=== PATIENT | female | born 1985 | race Caucasian/White ===

== ENCOUNTER 2016-12-14 23:08 | Emergency (ER) | payer OTHER ==
[~2016-12-14] VITALS: Ht 165.1 cm; Wt 157.4 kg
[~2016-12-14 23:08] MED LIST: ATIVAN1 MG PO; MOTRIN; MOTRIN800 MG PO; NATURAL IRON65 MG PO; PEPTO BISMUL; PRENATAL VITAMI1 T10 PO; PRENATAL1 TA1 PO; ZOFRAN4 M3 PO; tylenol
[2016-12-14 23:10] VITALS: BP 127/61
--- NOTE | 2016-12-15 00:40 | NUR ---
TO ER BED 8
--- NOTE | 2016-12-15 00:42 | NUR ---
PT PRESENTS TO ER WITH C/O CHEST PAIN SINCE JULY AND REPORTS THAT IT HAS BEEN WORSENING EVERY MONTH. DENIES MED HX
[2016-12-15] MEDS ORDERED: KETOROLAC 60 MG/2 ML VIAL IM ONE (01:25)
[2016-12-15 02:13] VITALS: BP 118/67
--- NOTE | 2016-12-15 02:13 | NUR ---
Patient discharged with v/s stable. Written and verbal after care instructions given and explained. Patient alert, oriented and verbalized understanding of instructions. Ambulatory with steady gait. All questions addressed prior to discharge. ID band removed. Patient advised to follow up with PMD. Rx of MOTRIN, PRILOSEC given. Patient educated on indication of medication including possible reaction and side effects. Opportunity to ask questions provided and answered.
[2017-01-22] MEDS ORDERED: ZOFRAN ODT4 MG PO (09:53)
[2017-01-22] MEDS ORDERED: ACETAMINOPHEN-H1 TA3 PO (09:53)
[2017-01-22] MEDS ORDERED: FLAGYL500 M1 PO (09:53)
[2017-01-22] MEDS ORDERED: COLACE100 MG PO (09:53)
== END 2016-12-15 02:13 | disposition home or self-care (01) ==
LOC: MED 23:08
DX: R07.89 Other chest pain (principal); R11.2 Nausea with vomiting, unspecified; R05 Cough
CPT/HCPCS: 93005; 96372; 99283; J1885

== ENCOUNTER 2017-01-17 05:40 | Emergency (ER) | payer OTHER ==
[~2017-01-17] VITALS: Ht 165.1 cm; Wt 156.2 kg
[~2017-01-17 05:40] MED LIST changes: -ATIVAN1 MG PO; +IRON65TA11 PO; -MOTRIN; -MOTRIN800 MG PO; -NATURAL IRON65 MG PO; -PEPTO BISMUL; +PREN-385 PO; -PRENATAL VITAMI1 T10 PO; -PRENATAL1 TA1 PO; -ZOFRAN4 M3 PO; -tylenol
--- NOTE | 2017-01-17 05:40 | NUR ---
PATIENT AMBULATED TO ER BED 4.
[2017-01-17 05:45] VITALS: BP 116/75
--- NOTE | 2017-01-17 05:50 | NUR ---
Patient being evaluated by physician at bedside.
--- NOTE | 2017-01-17 05:55 | NUR ---
31Y F PRESENTED TO ER C/O OF ABDOMINAL PAIN X3 DAYS WITH NAUSEA BUT NO VOMITTING. PAIN 9/10 IN SCALE.
[2017-01-17] MEDS ORDERED: NACL 0.9% 500 ML IV ONE (06:00)
[2017-01-17] MEDS ORDERED: ONDANSETRON 4 MG/2 ML VIAL IVP ONE (06:00)
[2017-01-17] MEDS ORDERED: KETOROLAC 30 MG/ML VIAL IVP ONE (06:00)
--- NOTE | 2017-01-17 07:00 | NUR ---
RT AC IV SITE WITH SWELLING AND INFILTRATED. NO C/O OF PAIN. IVF STOPPED AND IV REMOVED. PT TOLERATED PROCEDURE WELL. STARTED NEW IV G#22 TO LT HAND.
[2017-01-17 07:40] LABS: ANION GAP 9.5 (8-16); CALCIUM 8.3 mg/dL (8.5-10.1); CARBON DIOXIDE 27.4 mmol/L (21-32); CREATININE 0.8 mg/dL (0.6-1.3); POTASSIUM 3.9 mmol/L (3.5-5.1)
[2017-01-17 07:43] LABS: BASOPHILS # (AUTO) 0.4 K/uL (0.00-0.22); BASOPHILS % (AUTO) 4.3 % (0.0-2.0); EOSINOPHILS # (AUTO) 0.1 K/uL (0-0.4); EOSINOPHILS % (AUTO) 0.9 % (0.0-4.0); HEMATOCRIT 37.2 % (36-48); HEMOGLOBIN 12.1 g/dL (12.0-16.0); LYMPHOCYTES # (AUTO) 1.5 K/uL (2.5-16.5); MEAN CORPUSCULAR HEMOGLOBIN 26 pg (27-31); MEAN CORPUSCULAR HGB CONC 32 g/dL (33-37); MEAN CORPUSCULAR VOLUME 81 fL (80-94); MONOCYTES # (AUTO) 0.5 K/uL (0.8-1.0); MONOCYTES % (AUTO) 5.1 % (1.7-9.3); NEUTROPHILS # (AUTO) 7.2 K/uL (1.8-7.7); NEUTROPHILS % (AUTO) 74.7 % (42.2-75.2); PLATELET COUNT (AUTO) 261 K/uL (140-450); RED BLOOD CELL COUNT(AUTO) 4.62 MIL/uL (4.20-5.40); RED CELL DISTRIBUTION WIDTH 14.4 % (11.6-13.7); WHITE BLOOD COUNT (AUTO) 9.7 K/uL (4.8-10.8)
[2017-01-17 07:46] LABS: ALBUMIN 3.3 g/dL (3.4-5.0); TOTAL BILIRUBIN 0.2 mg/dL (0.0-1.0)
--- NOTE | 2017-01-17 08:12 | NUR ---
Vale carter in [facility] - 01/17/17 at 0823 by MEDRICK IV removed, catheter intact and site benign. Applied folded 4x4 gauze and tape to stop bleeding. PT TOLERATED PROCEDURE WELL.
--- NOTE | 2017-01-17 08:12 | NUR ---
IV removed, catheter intact and site benign. Applied folded 4x4 gauze and tape to stop bleeding. PT TOLERATED PROCEDURE WELL. SWELLING/REDNESS TO RT AC FROM INFILTRATED IV DECREASED; PT DENIES PAIN TO SITE AT THIS TIME.
[2017-01-17 08:15] VITALS: BP 112/72
--- NOTE | 2017-01-17 08:15 | NUR ---
Patient discharged with v/s stable. Written and verbal after care instructions given and explained. Patient alert, oriented and verbalized understanding of instructions. Ambulatory with to car. All questions addressed prior to discharge. ID band removed. Patient advised to follow up with PMD. Rx of ZOFRAN ODT 4MG & TYLENOL W/ CODEINE NO. 3 TAB given. Patient educated on indication of medication including possible reaction and side effects. Opportunity to ask questions provided and answered.
== END 2017-01-17 08:15 | disposition home or self-care (01) ==
LOC: MED 05:40
DX: K80.00 Calculus of gallbladder with acute cholecystitis without obstruction (principal); E66.01 Morbid (severe) obesity due to excess calories; R03.0 Elevated blood-pressure reading, without diagnosis of hypertension
CPT/HCPCS: 36415; 76705; 80053; 81025; 83690; 85025; 96361; 96374; 96375; 99285; J1885; J2405; Q0092

== ENCOUNTER 2017-01-18 15:49 | Inpatient (IN) | payer OTHER ==
[~2017-01-18] VITALS: Ht 165.1 cm; Wt 156.5 kg
[2017-01-18 16:15] VITALS: BP 131/80
[2017-01-18] MEDS ORDERED: NACL 0.9% 1,000 ML IV SCH (18:15)
[2017-01-18] MEDS ORDERED: FAMOTIDINE 20 MG/2 ML VIAL IVP ONE (18:15)
[2017-01-18] MEDS ORDERED: ONDANSETRON 4 MG/2 ML VIAL IVP ONE (18:15)
--- NOTE | 2017-01-18 18:24 | NUR ---
PT TAKEN TO BED 6
--- NOTE | 2017-01-18 18:24 | NUR ---
Vale carter in [facility] - 01/18/17 at 1826 by [facility] PT AMBULATED TO BED 3.
--- NOTE | 2017-01-18 18:25 | NUR ---
31/F PT C/O RUQ PAIN. PT STATES SHE WAS SEEN IN ER LAST NOC AND DX W/GALLSTONES AND PRESCRIBED TYLENOL #3, BUT THE MEDICATION ISN'T HELPING AND SHE'S STILL IN ALOT OF PAIN.PATIENT STATED HAS N/V BUT DENIES DIARRHEA; SKIN IS PINK/WARM/DRY; AAOX4 WITH EVEN AND STEADY GAIT; LUNGS CLEAR BL; HR EVEN AND REGULAR; PT DENIES ANY FEVER, CP, SOB, OR COUGH AT THIS TIME; PATIENT STATES PAIN OF 10/10 AT THIS TIME; VSS; PATIENT POSITIONED FOR COMFORT; HOB ELEVATED; BEDRAILS UP X2; BED DOWN. ER MD MADE AWARE OF PT STATUS.
[2017-01-18 18:52] LABS: APPEARANCE,URINE HAZY (CLEAR); BILIRUBIN,URINE NEGATIVE (NEGATIVE); BLOOD, URINE 2+ (NEGATIVE); COLOR,URINE YELLOW (YELLOW); LEUKOCYTE ESTERASE ,URINE NEGATIVE (NEGATIVE); NITRITE, URINE NEGATIVE (NEGATIVE); PROTEIN,URINE NEGATIVE (NEGATIVE); UGLUCOSE NEGATIVE (NEGATIVE)
--- NOTE | 2017-01-18 18:53 | NUR ---
Dr. Herring evaluating patient at bedside.
[2017-01-18 19:03] LABS: ANION GAP 10.7 (8-16); CALCIUM 8.4 mg/dL (8.5-10.1); CARBON DIOXIDE 29.1 mmol/L (21-32); POTASSIUM 3.8 mmol/L (3.5-5.1)
[2017-01-18 19:04] LABS: ALBUMIN 3.4 g/dL (3.4-5.0); CREATININE 0.7 mg/dL (0.6-1.3); TOTAL BILIRUBIN 0.4 mg/dL (0.0-1.0); TOTAL PROTEIN, SERUM 7.7 g/dL (6.4-8.2)
[2017-01-18] MEDS ORDERED: MORPHINE SULFATE 4 MG/ML SYR IVP ONE (19:05)
[2017-01-18 19:08] LABS: BACTERIA,URINE FEW /HPF (None Seen); RBC,URINE 11-20 (MOD) /HPF (0-5); SQUAMOUS EPITHELIAL CELL,UR 20-50 /LPF (0-3 (FEW)); WBC,URINE 0-5 (RARE) /HPF (0-5)
[2017-01-18 19:09] LABS: BASOPHILS # (AUTO) 0.1 K/uL (0.00-0.22); BASOPHILS % (AUTO) 0.5 % (0.0-2.0); EOSINOPHILS # (AUTO) 0.1 K/uL (0-0.4); EOSINOPHILS % (AUTO) 0.8 % (0.0-4.0); HEMATOCRIT 38.7 % (36-48); HEMOGLOBIN 12.6 g/dL (12.0-16.0); LYMPHOCYTES % (AUTO) 7.2 % (20.5-51.1); MEAN CORPUSCULAR HEMOGLOBIN 26 pg (27-31); MEAN CORPUSCULAR HGB CONC 33 g/dL (33-37); MEAN CORPUSCULAR VOLUME 80 fL (80-94); MONOCYTES # (AUTO) 0.7 K/uL (0.8-1.0); MONOCYTES % (AUTO) 5.5 % (1.7-9.3); NEUTROPHILS # (AUTO) 11.7 K/uL (1.8-7.7); PLATELET COUNT (AUTO) 284 K/uL (140-450); RED BLOOD CELL COUNT(AUTO) 4.82 MIL/uL (4.20-5.40); RED CELL DISTRIBUTION WIDTH 14.4 % (11.6-13.7); WHITE BLOOD COUNT (AUTO) 13.6 K/uL (4.8-10.8)
--- NOTE | 2017-01-18 19:10 | NUR ---
Dr. Ortiz at bedside to evaluate patient.
--- NOTE | 2017-01-18 19:16 | NUR ---
Pt report given to MILO RUSSELL. Transfer of care at this time.
[2017-01-18] MEDS ORDERED: PIPERACILLIN/TAZOBACTAM 3.375 GM in DEXTROSE 5% 50 ML IV ONE (19:20)
[2017-01-18] MEDS ORDERED: NACL 0.9% 1,000 ML IV ONE (19:20)
[2017-01-18] MEDS ORDERED: PIPERACILLIN/TAZOBACTAM 3.375 GM VIAL IV ONE (19:49)
--- NOTE | 2017-01-18 20:15 | NUR ---
Patient will be admitted to care of DR VENEGAS. Admited to MED SURG. Will go to room 120 A. Belongings list completed. Report to MILO REYES.
--- NOTE | 2017-01-18 20:33 | NUR ---
PT TRASFERRED BY EMT TO MED SURG BERNADINE SZYMANSKIS.
[2017-01-18 20:35] VITALS: BP 105/67
--- NOTE | 2017-01-18 20:35 | NUR ---
Admitted from ER TO MED SURGICAL UNIT VIA W/C , with chief complaint of RUE ABDOMINAL PAIN, WITH NAUSEA VOMITING , 31 y/o ,Female, OBESE, Cooperative, AWAKE, A/OX4. RESPIRATION EVEN AND UNLABORED. IV SALINE LOCK AT THE RIGHT AC, G20, PATENT AND INTACT. ABDOMEN SOFT, WITH POSITIVE BOWEL SOUNDS ON ALL QUADRANTS. SKIN INTACT, DENIES PAIN AT THIS TIME 0/10.FAMILY AT THE BEDSIDE. oriented to call light, bed, phone,television, bathroom, smoking policy visiting hours, procedures, ID bracelet on. Belongings list checked.
--- NOTE | 2017-01-18 22:00 | NUR ---
Patient's Plan of Care was discussed and reviewed with SQL REPORT DEVELOPER: AMY ROSAS
[2017-01-19] VITALS: BP 100/68
[2017-01-19] MEDS ORDERED: metroNIDAZOLE 500 MG/NS PREMIX 100 ML IV SCH (00:20)
[2017-01-19] MEDS: DEXT 5% /NACL 0.9% 1,000 ML IV SCH ×3 (00:50→23:19)
[2017-01-19] MEDS: LEVOFLOXACIN 500 MG/D5W PREMIX 100 ML IV SCH (01:04)
[2017-01-19] MEDS: MORPHINE SULFATE 2 MG/ML SYR IVP PRN ×5 (01:05→23:19)
[2017-01-19] MEDS ORDERED: ONDANSETRON 4 MG/2 ML VIAL IVP PRN (03:40)
[2017-01-19] MEDS: metroNIDAZOLE 500 MG/NS PREMIX 100 ML IV SCH ×3 (03:56→22:08)
[2017-01-19 05:53] LABS: HEMATOCRIT 33.9 % (36-48); HEMOGLOBIN 11.5 g/dL (12.0-16.0); MEAN CORPUSCULAR HEMOGLOBIN 27 pg (27-31); MEAN CORPUSCULAR HGB CONC 34 g/dL (33-37); MEAN CORPUSCULAR VOLUME 79 fL (80-94); PLATELET COUNT (AUTO) 244 K/uL (140-450); RED BLOOD CELL COUNT(AUTO) 4.28 MIL/uL (4.20-5.40); RED CELL DISTRIBUTION WIDTH 14.1 % (11.6-13.7); WHITE BLOOD COUNT (AUTO) 12.1 K/uL (4.8-10.8)
[2017-01-19 06:00] VITALS: BP 111/70
[2017-01-19 06:41] LABS: ALBUMIN 2.9 g/dL (3.4-5.0); CALCIUM 7.8 mg/dL (8.5-10.1); CARBON DIOXIDE 28.2 mmol/L (21-32); CREATININE 0.6 mg/dL (0.6-1.3); POTASSIUM 4.2 mmol/L (3.5-5.1); TOTAL BILIRUBIN 0.6 mg/dL (0.0-1.0); TOTAL PROTEIN, SERUM 6.8 g/dL (6.4-8.2)
--- NOTE | 2017-01-19 07:00 | NUR ---
WITH ON AND OFF ABDOMINAL PAIN, MEDICATED ORDERED. CONDITION REMAIN STABLE. WILL ENDORSE TO AM NURSE FOR CONTINUITY OF CARE.
--- NOTE | 2017-01-19 07:20 | NUR ---
ENDORSED TO KAY/RJ RNs FOR CONTINUITY OF CARE.
--- NOTE | 2017-01-19 07:21 | NUR ---
RECEIVED REPORT FROM DRY CLEANING CHECKER NURSE AT BEDSIDE FOR CONTINUITY OF CARE. PT IS ALERT AWAKE AND ORIENTED. INTRODUCED OURSELVES AND UPDATED THE BOARD. PT DENIES PAIN AT THIS TIME. VS WNL. PT HAS R AC 20G RUNNING D5NS @75ML/HR. EXPLAINED PT PLAN OF CARE AND WILL UPDATE PT ONCE WE KNOW THE TIME FOR SURGERY. CALL LIGHT WITHIN REACH. WILL CONTINUE TO MONITOR.
[2017-01-19 07:38] LABS: BAND % (MANUAL) 1 % (0-8); LYMPHOCYTES % (MANUAL) 10 % (20-46); MONOCYTES % (MANUAL) 4 % (5-12); NEUTROPHILS % (MANUAL) 84 (43-65)
--- NOTE | 2017-01-19 09:21 | NUR ---
PATIENT HAS BEEN SCREENED AND CATEGORIZED HIGH NUTRITION RISK. PATIENT WILL BE SEEN WITHIN 1-2 DAYS OF ADMISSION. 01/19/17-01/20/[address]
--- NOTE | 2017-01-19 10:28 | NUR ---
PT SLEEPING SOUNDLY. NO SIGNS OF DISTRESS. IV PUMP BEEPING. WILL PUT ON STANDBY. WILL CONTINUE TO MONITOR PT.
--- NOTE | 2017-01-19 12:55 | NUR ---
PT C/O OF PAIN. ADMINISTERED PAIN MEDS. FATHER AT BEDSIDE. WILL CONTINUE TO MONITOR PT.
--- NOTE | 2017-01-19 14:11 | NUR ---
PT RESTING COMFORTABLY. FATHER AT BEDSIDE. NO COMPLAINTS AT THIS TIME. WILL CONTINUE TO MONITOR PT.
--- NOTE | 2017-01-19 14:51 | NUR ---
CM NOTE INITIAL REVIEW SENT TO [facility] FAX# [phone] PH# SARA [phone]
[2017-01-19 16:00] VITALS: BP 119/76
--- NOTE | 2017-01-19 16:30 | NUR ---
VS WNL. PT IS TALKING WITH FRIENDS WHO ARE AT BEDSIDE. DENIES PAIN AT THIS TIME. WILL CONTINUE TO MONITOR.
--- NOTE | 2017-01-19 17:59 | NUR ---
PT RESTING IN BED. HAS SOME PAIN, VERY LITTLE. REFUSES PAIN MEDS AT THIS TIME. WILL EAT HER DINNER TRAY. NO OTHER COMPLAINTS. WILL CONTINUE TO MONITOR.
--- NOTE | 2017-01-19 18:15 | NUR ---
PT STATED SHE DEVELOPED 8/10 PAIN AFTER EATING THE SOUP. ADMINISTERED MORPHINE. PT TOLERATED WELL. WILL CONTINUE TO MONITOR.
--- NOTE | 2017-01-19 19:11 | NUR ---
ENDORSED PT TO BUILDING INSPECTOR NURSE AT BEDSIDE. PT IN STABLE CONDITION.
--- NOTE | 2017-01-19 19:12 | NUR ---
RECD. RESTING IN BED, AWAKE, A/OX4. RESPIRATION EVEN AND UNLABORED. IV OF NS AT 75 ML/HR INFUSING LEFT FOREARM G22. AWARE OF PLAN SURGERY TOMORROW. PLAN OF CARE FOR THE SHIFT DISCUSSED. VERBALIZED UNDERSTANDING. DENIES PAIN 0/10. PARENTS AT THE BEDSIDE.
--- NOTE | 2017-01-19 23:00 | NUR ---
NPO PAST MIDNIGHT. VERBALIZED UNDERSTANDING.
[2017-01-19 23:09] VITALS: BP 116/61
[2017-01-20] VITALS (7 sets, daily range): BP systolic 107–127; BP diastolic 66–87
--- NOTE | 2017-01-20 | NUR ---
SLEEPING COMFORTABLY IN BED.
[2017-01-20] MEDS: LEVOFLOXACIN 500 MG/D5W PREMIX 100 ML IV SCH (00:10)
--- NOTE | 2017-01-20 01:16 | NUR ---
Patient's Plan of Care was discussed and reviewed with SADE: AMY.
[2017-01-20] MEDS: DEXT 5% /NACL 0.9% 1,000 ML IV SCH (02:40)
[2017-01-20] MEDS: metroNIDAZOLE 500 MG/NS PREMIX 100 ML IV SCH ×3 (04:47→22:22)
[2017-01-20] MEDS: MORPHINE SULFATE 2 MG/ML SYR IVP PRN (04:48)
--- NOTE | 2017-01-20 06:00 | NUR ---
AMBULATED TO BR TO VOID, WENT BACK TO SLEEP AFTER VOIDING.
--- NOTE | 2017-01-20 06:45 | NUR ---
COMPLAINT OF ABDOMINAL PAIN ATTENDED PROMPTLY, MEDICATED ORDERED. CONDITION REMAIN STABLE. WILL ENDORSE TO AM NURSE FOR CONTINUITY OF CARE.
[2017-01-20 06:56] LABS: BASOPHILS # (AUTO) 0.1 K/uL (0.00-0.22); BASOPHILS % (AUTO) 0.6 % (0.0-2.0); EOSINOPHILS # (AUTO) 0.1 K/uL (0-0.4); EOSINOPHILS % (AUTO) 1.2 % (0.0-4.0); HEMATOCRIT 35.7 % (36-48); HEMOGLOBIN 11.4 g/dL (12.0-16.0); LYMPHOCYTES # (AUTO) 1.3 K/uL (2.5-16.5); LYMPHOCYTES % (AUTO) 12.8 % (20.5-51.1); MEAN CORPUSCULAR HEMOGLOBIN 26 pg (27-31); MEAN CORPUSCULAR HGB CONC 32 g/dL (33-37); MEAN CORPUSCULAR VOLUME 81 fL (80-94); MONOCYTES # (AUTO) 0.9 K/uL (0.8-1.0); MONOCYTES % (AUTO) 9.1 % (1.7-9.3); NEUTROPHILS # (AUTO) 7.5 K/uL (1.8-7.7); NEUTROPHILS % (AUTO) 76.3 % (42.2-75.2); PLATELET COUNT (AUTO) 258 K/uL (140-450); RED BLOOD CELL COUNT(AUTO) 4.41 MIL/uL (4.20-5.40); RED CELL DISTRIBUTION WIDTH 14.3 % (11.6-13.7); WHITE BLOOD COUNT (AUTO) 9.9 K/uL (4.8-10.8)
--- NOTE | 2017-01-20 07:20 | NUR ---
ENDORSED TO Melania ADAME FOR CONTINUITY OF CARE.
--- NOTE | 2017-01-20 07:21 | NUR ---
RECEIVED REPORT FROM PARTS RUNNER NURSE AT BEDSIDE. PT IS ALERT AWAKE AND ORIENTED. REINTRODUCED OURSELVES AND UPDATED THE BOARD. EXPLAINED TO PT PLAN OF DAY AND WILL UPDATE PT ON SURGERY TIME. PT VS WNL. PT DENIES PAIN AT THIS TIME. PT HAS IV ON L HAND 22 G RUNNING 75ML/HR OF D5NS. NO DISTRESS NOTED. CALL LIGHT WITHIN REACH. WILL CONTINUE TO MONITOR.
[2017-01-20 07:31] LABS: ALBUMIN 2.8 g/dL (3.4-5.0); ANION GAP 10.5 (8-16); CALCIUM 7.9 mg/dL (8.5-10.1); CARBON DIOXIDE 27.1 mmol/L (21-32); CREATININE 0.6 mg/dL (0.6-1.3); POTASSIUM 3.6 mmol/L (3.5-5.1); TOTAL BILIRUBIN 0.5 mg/dL (0.0-1.0); TOTAL PROTEIN, SERUM 6.8 g/dL (6.4-8.2)
--- NOTE | 2017-01-20 09:25 | NUR ---
DR. JESSICA CALLED AND STATED THAT HE IS COMING TO PERFORM SURGERY AT 10. THE SURGERY IS LAPAROSCOPIC CHOLECYSTECTOMY, POSSIBLE OPEN CHOLECYSTECTOMY, AND INDICATED PROCEDURE. WILL HAVE CONSENT AND PROGRESS NOTE READY.
[2017-01-20] MEDS ORDERED: LIDOCAINE 1% 50 ML ONE (09:36)
[2017-01-20] MEDS: BUPIVACAINE-MPF 0.25% 30 ML VIAL INJ ONE ×2 (09:37→13:07)
--- NOTE | 2017-01-20 10:00 | NUR ---
OR NURSES CAME TO AUTOMATIC LATHE OPERATOR PT FOR SURGERY. ALL JEWELRY REMOVED. IV DISCONNECTED. CONSENT SIGNED IN CHART. TICKET TO RIDE IN CHART. PT IN STABLE CONDITION. PT TRANSFERRED IN [facility].
[2017-01-20] MEDS ORDERED: DEXAMETHASONE 4 MG/ML VIAL ONE (10:10)
[2017-01-20] MEDS ORDERED: ROCURONIUM 50 MG/5 ML VIAL IV ONE (10:10)
[2017-01-20] MEDS ORDERED: SUCCINYLCHOLINE CHLORIDE 200 MG/10 ML VIAL IVP ONE (10:10)
[2017-01-20] MEDS ORDERED: PROPOFOL 200 MG/20 ML VIAL IV ONE (10:10)
[2017-01-20] MEDS ORDERED: GLYCOPYRROLATE 0.2 MG/ML VIAL ONE (10:10)
[2017-01-20] MEDS ORDERED: ONDANSETRON 4 MG/2 ML VIAL ONE (10:10)
[2017-01-20] MEDS ORDERED: DESFLURANE 240 ML BTL INH ONE (10:10)
[2017-01-20] MEDS ORDERED: KETOROLAC 60 MG/2 ML VIAL IM ONE (10:10)
[2017-01-20] MEDS ORDERED: PHENYLEPHRINE 10 MG/ML VIAL ONE (10:10)
[2017-01-20] MEDS ORDERED: MIDAZOLAM 2 MG/2 ML VIAL ONE (10:35)
[2017-01-20] MEDS ORDERED: MEPERIDINE 50 MG/ML SYR ONE (10:35)
[2017-01-20] MEDS ORDERED: fentaNYL 0.05 MG/ML VIAL ONE ×2 (10:35→13:04)
[2017-01-20] MEDS ORDERED: ceFAZolin 1,000 MG VIAL ONE (11:33)
[2017-01-20] MEDS ORDERED: MIDAZOLAM 2 MG/2 ML VIAL IVP ONE (12:45)
[2017-01-20] MEDS ORDERED: MEPERIDINE 25 MG/ML SYR IVP PRN ×2 (12:45)
[2017-01-20] MEDS ORDERED: METOCLOPRAMIDE 10 MG/2 ML INJ VIAL IVP PRN (12:45)
--- NOTE | 2017-01-20 13:05 | NUR ---
01/20/17 RD INITIAL ASSESSMENT COMPLETED PLEASE REFER TO NUTRITION ASSESSMENT UNDER CARE ACTIVITY FOR ESTIMATED NUTRITIONAL NEEDS. 1. WHEN MEDICALLY FEASIBLE, INITIATE ORAL DIET TO START ON CLEAR LIQUID DIET AND ADVANCE TOLERATED TO REGULAR DIET 2. RD TO FOLLOW-UP 2-3 DAYS; HIGH RISK WERNER ASENCIO, JULIANNE
[2017-01-20] MEDS ORDERED: BACITRACIN 50000 UNITS/1 VIAL ONE (13:40)
--- NOTE | 2017-01-20 14:39 | NUR ---
CM NOTE CONCURRENT REVIEW SENT TO [facility] FAX# [phone] PH# SARA [phone]
--- NOTE | 2017-01-20 14:50 | NUR ---
CALLED OR FOR AN UPDATE ON PT STATUS. OR NURSE STATED SURGEON JUST FINISHED SURGERY. REASSURED PT'S FAMILY.
[2017-01-20] MEDS: DEXT 5% / NACL 0.45% 1,000 ML IV SCH ×2 (15:07→23:07)
[2017-01-20] MEDS ORDERED: HYDROmorphone 1 MG/ML AMP IVP PRN (15:10)
[2017-01-20] MEDS ORDERED: ONDANSETRON 4 MG/2 ML VIAL IVP PRN (15:10)
--- NOTE | 2017-01-20 16:10 | NUR ---
PT CAME BACK TO UNIT WITH OR NURSE. PT IS DROWSY BUT WAKES UP TO VOICE. PT HAD OPEN DEVONTE SURGERY. EBL 250 ML, URINE OUTPUT 300 ML, LEN DRAIN ALREADY EMPTIED 35 ML. PT HAS 2 BANDAIDS AND 2 4X4 GAUZE, 2 ABDOMINAL BINDERS. WILL CHANGE DRESSING IF SOILED, RIGHT NOW NOT SOILED. PT RECEIVED FLAGYL, LEVAQUIN AND ANCEF IN OR. PT WILL BE CLEAR LIQUID TONIGHT AND PROGRESS ON DIET TOMORROW. VS WNL EXCEPT FOR O2 SAT OF 90-92%, PUT ON NC 3L, O2 SAT 97%. WILL CONTINUE TO MONITOR CLOSELY. UPDATED THE PARENTS AND .
[2017-01-20] MEDS: PIPER/TAZO 3.375GM/D5W PREMIX 50 ML IV SCH (17:30)
--- NOTE | 2017-01-20 17:38 | NUR ---
PT STILL SLEEPING. SPOUSE AT BEDSIDE. PARENTS LEFT. NO SIGNS OF DISTRESS. WILL CONTINUE TO MONITOR PT.
--- NOTE | 2017-01-20 19:13 | NUR ---
ENDORSED CARE OF PT TO CLINICAL INFORMATICS SPEC NURSE AT BEDSIDE. PT IS IN STABLE CONDITION.
--- NOTE | 2017-01-20 19:14 | NUR ---
RECD. RESTING IN BED, AWAKE, A/OX4. RESPIRATION EVEN AND UNLABORED. IV OF D51/2 NS AT 125 ML/HR INFUSING. INCISION (3) IN THE ABDOMEN COVERED WITH DRESSING, WITH SMALL AMOUNT OF BLOOD SEEPING THROUGH DRESSING, 1 LEN DRAINING SANGUINEOUS FLUID, MINIMAL AMOUNT. NO ACTIVE BLEEDING NOTED. WITH TWO ABDOMINAL BINDER TO KEEP DRESSING IN PLACE. ON BILATERAL LEG SEQUENTIALS. PLAN OF CARE FOR THE SHIFT DISCUSSED. VERBALIZED UNDERSTANDING. DENIES PAIN 0/10.
--- NOTE | 2017-01-20 20:00 | NUR ---
Patient's Plan of Care was discussed and reviewed with BROOMCORN PRESS FEEDER: AMY ROSAS.
[2017-01-20] MEDS: KETOROLAC 30 MG/ML VIAL IVP SCH (22:22)
--- NOTE | 2017-01-20 22:26 | NUR ---
PT TOLERATED 2100 MEDS WELL.
[2017-01-21] VITALS: BP 103/61
--- NOTE | 2017-01-21 | NUR ---
SLEEPING COMFORTABLY IN BED.
[2017-01-21] MEDS: PIPER/TAZO 3.375GM/D5W PREMIX 50 ML IV SCH ×5 (00:13→23:32)
[2017-01-21] MEDS: LEVOFLOXACIN 500 MG/D5W PREMIX 100 ML IV SCH ×2 (00:48→23:31)
[2017-01-21 03:28] VITALS: BP 112/53
[2017-01-21] MEDS: MORPHINE SULFATE 2 MG/ML SYR IVP PRN ×4 (03:30→23:46)
--- NOTE | 2017-01-21 04:00 | NUR ---
DISCONTINUED DENNISON CATHETER. HAD 500 ML TEA COLORED URINE. ENCOURAGED TO DRINK MORE FLUIDS.
[2017-01-21] MEDS: metroNIDAZOLE 500 MG/NS PREMIX 100 ML IV SCH ×3 (04:23→20:24)
[2017-01-21] MEDS: KETOROLAC 30 MG/ML VIAL IVP SCH ×2 (04:23→13:53)
[2017-01-21] MEDS: DEXT 5% / NACL 0.45% 1,000 ML IV SCH ×4 (04:28→23:07)
--- NOTE | 2017-01-21 06:00 | NUR ---
TOLERATED CLEAR LIQUIDS, NO N/V NOTED. ENCOURAGED TO AMBULATE MORE.
--- NOTE | 2017-01-21 06:50 | NUR ---
AWAKE IN BED, INSTRUCTED TO CALL NURSE BEFORE GETTING OUT OF BED FOR ASSISTANCE. VERBALIZED UNDERSTANDING. CONDITION REMAIN STABLE. WILL ENDORSE TO AM NURSE FOR CONTINUITY OF CARE.
--- NOTE | 2017-01-21 07:15 | NUR ---
ENDORSED TO MILO GALAVIZ FOR CONTINUITY OF CARE.
--- NOTE | 2017-01-21 07:15 | NUR ---
RECEIVED REPORT FROM NIGHT NURSE. PT IS AAOX4, ON ROOM AIR, IV TO RIGHT WRIST 20G INFUSING WELL, LEFT WRIST 22G SALINE LOCK PATENT AND INTACT. S/P OPEN DEVONTE WITH ABD DRESSINGS DRY AND INTACT, BINDER IN PLACE. LEN DRAIN IN PLACE. INITIAL ASSESSMENT COMPLETED. REVIEWED PLAN OF CARE WITH PT, PT VERBALIZED UNDERSTANDING, ALL SAFETY PRECAUTIONS MET, CALL LIGHT WITHIN REACH. WILL CONTINUE TO MONITOR.
[2017-01-21 08:00] VITALS: BP 110/60
--- NOTE | 2017-01-21 09:01 | NUR ---
CM NOTE CONCURRENT REVIEW SENT TO [facility] FAX# [phone] PH# SARA [phone]
[2017-01-21 09:17] LABS: BASOPHILS # (AUTO) 0.5 K/uL (0.00-0.22); BASOPHILS % (AUTO) 3.8 % (0.0-2.0); EOSINOPHILS # (AUTO) 0.1 K/uL (0-0.4); HEMATOCRIT 31.4 % (36-48); HEMOGLOBIN 9.8 g/dL (12.0-16.0); LYMPHOCYTES # (AUTO) 1.3 K/uL (2.5-16.5); LYMPHOCYTES % (AUTO) 10.6 % (20.5-51.1); MEAN CORPUSCULAR HEMOGLOBIN 25 pg (27-31); MEAN CORPUSCULAR HGB CONC 31 g/dL (33-37); MEAN CORPUSCULAR VOLUME 80 fL (80-94); MONOCYTES # (AUTO) 0.7 K/uL (0.8-1.0); MONOCYTES % (AUTO) 5.5 % (1.7-9.3); NEUTROPHILS % (AUTO) 79.1 % (42.2-75.2); PLATELET COUNT (AUTO) 306 K/uL (140-450); RED BLOOD CELL COUNT(AUTO) 3.91 MIL/uL (4.20-5.40); WHITE BLOOD COUNT (AUTO) 12.6 K/uL (4.8-10.8)
[2017-01-21 09:25] LABS: ANION GAP 9.1 (8-16); CALCIUM 7.7 mg/dL (8.5-10.1); CARBON DIOXIDE 28.8 mmol/L (21-32); CREATININE 0.7 mg/dL (0.6-1.3); POTASSIUM 3.9 mmol/L (3.5-5.1)
--- NOTE | 2017-01-21 12:39 | NUR ---
DUE MEDICATIONS GIVEN, PT C/O ABD PAIN MEDICATED PER MD ORDERS. ASSISTED PT TO RESTROOM.
--- NOTE | 2017-01-21 13:00 | NUR ---
MILO GALAVIZ INSTRUCTED PT ON IS AND NOC RT WILL FOLLOW UP WITH PT
--- NOTE | 2017-01-21 13:06 | NUR ---
PT URINATED, PT WALKED AROUND UNIT ONCE, PT TOLERATED WELL, PT BACK TO ROOM CURRENTLY SITTING ON CHAIR AT BEDSIDE, PROVIDED IS AND EDUCATION, PT VERBALIZED UNDERSTANDING.
--- NOTE | 2017-01-21 13:55 | NUR ---
DUE MEDICATIONS GIVEN, PT TOLERATED WELL. PT TOLERATED CLEAR LIQUIDS. ALL NEEDS MET. PT CURRENTLY SITTING AT BEDSIDE. CALL LIGHT WITHIN REACH. WILL CONTINUE TO MONITOR.
[2017-01-21 16:00] VITALS: BP 119/60
--- NOTE | 2017-01-21 16:05 | NUR ---
PT CURRENTLY VISITING WITH FAMILY MEMBERS. ALL NEEDS MET. CALL LIGHT WITHIN REACH. WILL CONTINUE TO MONITOR.
--- NOTE | 2017-01-21 18:18 | NUR ---
DUE MEDICATIONS GIVEN, PT CURRENTLY RESTING IN BED, MEDICATED PT FOR PAIN, LEN DRAIN 20MLS. ALL NEEDS MET. CALL LIGHT WITHIN REACH. WILL CONTINUE TO MONITOR.
--- NOTE | 2017-01-21 19:30 | NUR ---
ENDORSED PLAN OF CARE TO NIGHT NURSE , PT ON STABLE CONDITION.
--- NOTE | 2017-01-21 19:40 | NUR ---
RECEIVED PT IN STABLE CONDITION FROM AM NURSE. AWAKE,ALERT AND ORIENTED X4. MED SURG PT. FAMILY MEMBERS AT BEDSIDE. WITH NO ACUTE DISTRESS NOTED. NO C/O ANY PAIN AT THIS TIME. IVF INFUSING WELL ON THE RT WRIST .CLEAR AND PATENT. S/P OPEN DEVONTE. WITH RT LOWER ABDOMINAL DRESSING X2 WITH J MORAN . HAS X1 BAND AID ON LOWER UMBILICAL AREA. ABDOMINAL BINDER IN PLACED. ENCOURAGED TO AMBULATE AND TURN TO SIDES WHILE IN BED. BLE WITH SCD MACHINE. PLAN OF CARE DISCUSSED AND VERBALIZED UNDERSTANDING . CALL LIGHT PLACED WITHIN EASY REACH. WILL CONTINUE TO MONITOR.
--- NOTE | 2017-01-21 21:30 | NUR ---
SLEEPING ATT HIS TIME. NO S/S OF ANY DISCOMFORT NOR PAIN NOTED. WILL CONTINUE TO MONITOR.
--- NOTE | 2017-01-21 23:00 | NUR ---
MADE ROUNDS, PT SLEEPING WELL. NO S/S FO ANY DISCOMFORT NOR PAIN . WILL CONTINUE TO MONITOR.
[2017-01-21 23:40] VITALS: BP 115/65
--- NOTE | 2017-01-22 00:22 | NUR ---
PT C/O NUMBNESS ON BOTH LOWER LEGS, MOSTLY LT LEG. PAGED. DR. DAMON. DR. DARREL Rendon LICENSED MENTAL HEALTH COUNSELOR .CALLED BACK ,MADE AWARE .NO ORDER MADE .SHE SAID TO HAVE PRIMARY MD KNOW IN AM.
--- NOTE | 2017-01-22 02:00 | NUR ---
STILL AWAKE. BUT NO C/O ANY DISCOMFORT NOR PAIN NOTED. WILL CONTINUE TO MONITOR.
--- NOTE | 2017-01-22 05:00 | NUR ---
ASSISTED X2 TO THE BATHROOM. C/O POST OP PAIN. WILL MEDICATE ORDERED.
[2017-01-22 05:18] VITALS: BP 134/71
[2017-01-22] MEDS: metroNIDAZOLE 500 MG/NS PREMIX 100 ML IV SCH ×3 (05:19→20:30)
[2017-01-22] MEDS: MORPHINE SULFATE 2 MG/ML SYR IVP PRN (05:20)
[2017-01-22] MEDS: PIPER/TAZO 3.375GM/D5W PREMIX 50 ML IV SCH ×3 (06:18→18:06)
[2017-01-22 06:39] LABS: BASOPHILS % (AUTO) 0.3 % (0.0-2.0); EOSINOPHILS # (AUTO) 0.1 K/uL (0-0.4); EOSINOPHILS % (AUTO) 0.9 % (0.0-4.0); HEMATOCRIT 29.1 % (36-48); HEMOGLOBIN 9.3 g/dL (12.0-16.0); LYMPHOCYTES # (AUTO) 1.3 K/uL (2.5-16.5); LYMPHOCYTES % (AUTO) 13.4 % (20.5-51.1); MEAN CORPUSCULAR HEMOGLOBIN 26 pg (27-31); MEAN CORPUSCULAR HGB CONC 32 g/dL (33-37); MEAN CORPUSCULAR VOLUME 82 fL (80-94); MONOCYTES # (AUTO) 0.8 K/uL (0.8-1.0); MONOCYTES % (AUTO) 8.3 % (1.7-9.3); NEUTROPHILS # (AUTO) 7.3 K/uL (1.8-7.7); NEUTROPHILS % (AUTO) 77.1 % (42.2-75.2); PLATELET COUNT (AUTO) 324 K/uL (140-450); RED BLOOD CELL COUNT(AUTO) 3.55 MIL/uL (4.20-5.40); WHITE BLOOD COUNT (AUTO) 9.5 K/uL (4.8-10.8)
[2017-01-22 07:18] LABS: ALBUMIN 2.2 g/dL (3.4-5.0); CALCIUM 7.5 mg/dL (8.5-10.1); CARBON DIOXIDE 27.5 mmol/L (21-32); CREATININE 0.6 mg/dL (0.6-1.3); POTASSIUM 3.5 mmol/L (3.5-5.1); TOTAL BILIRUBIN 0.2 mg/dL (0.0-1.0); TOTAL PROTEIN, SERUM 5.8 g/dL (6.4-8.2)
--- NOTE | 2017-01-22 07:20 | NUR ---
ENDORSED PT IN STABLE CONDITION TO AM NURSE.
--- NOTE | 2017-01-22 07:21 | NUR ---
RECEIVED REPORT FROM SUPERVISOR GLUING NURSE AT BEDSIDE. PT IS ALERT AWAKE AND ORIENTED. REINTRODUCED OURSELVES AND UPDATED THE BOARD. EXPLAINED TO PT PLAN OF CARE. PT DENIES PAIN. NO OTHER COMPLAINTS AT THIS TIME. PT HAS IV ON R WRIST 20G SALINE LOCKED AND L HAND 22 G SALINE LOCKED, WILL RESTART IVF D51/2NS AT 125ML/HR ORDERED. PT HAS 2 ABD BINDERS, DUE FOR DSG CHANGE TODAY. PT HAS LEN DRAIN WITH MINIMAL DRAINAGE. CALL LIGHT WITHIN REACH. WILL CONTINUE TO MONITOR.
[2017-01-22 08:00] VITALS: BP 122/65
--- NOTE | 2017-01-22 09:00 | NUR ---
RESTARTED PT ON IVF D51/2NS @ 125 ML/HR. PT DENIES PAIN. NO COMPLAINTS AT THIS TIME. PT CAME TO ASSESS PT'S GAIT WHEN WALKING. PT TOLERATED WELL. WILL CONTINUE TO MONITOR.
[2017-01-22] MEDS ORDERED: DOCU-264 PO (09:53)
[2017-01-22] MEDS ORDERED: ONDA4ODT1 PO (09:53)
[2017-01-22] MEDS ORDERED: METR500T1 PO (09:53)
[2017-01-22] MEDS ORDERED: ACET-9525 PO (09:53)
--- NOTE | 2017-01-22 10:30 | NUR ---
PT RESTING COMFORTABLY IN BED. PT STATED SHE AMBULATED TO THE RESTROOM EARLIER THIS MORNING. NO SIGNS OF DISTRESS. NO COMPLAINTS AT THIS TIME. WILL CONTINUE TO MONITOR PT.
--- NOTE | 2017-01-22 11:41 | NUR ---
CM NOTE CONCURRENT REVIEW SENT TO [facility] FAX# [phone] PH# SARA [phone]
[2017-01-22] MEDS: DEXT 5% / NACL 0.45% 1,000 ML IV SCH ×3 (12:00→23:07)
--- NOTE | 2017-01-22 12:00 | NUR ---
PT SITTING IN CHAIR, WAITING FOR LUNCH. DENIES PAIN. NO SIGNS OF DISTRESS. WILL CONTINUE TO MONITOR PT.
[2017-01-22] MEDS: HYDROcodone/APAP 5/325 MG 1 TAB TAB PO PRN ×2 (12:39→18:12)
--- NOTE | 2017-01-22 13:00 | NUR ---
REINSERTED AN IV IN THE R WRIST. PT TOLERATED WELL. PT IS FINISHING UP HER ZOSYN AND WILL START FLAGYL. PT TOLERATING WELL. WILL CONTINUE TO MONITOR PT.
--- NOTE | 2017-01-22 14:00 | NUR ---
PAGERosey AND SPOKE TO DR. JESSICA RE PT'S D/C. PER MD, PT WILL BE DISCHARGED TOMORROW. KEVIN WILL BE REMOVED AT BEDSIDE TOMORROW. PT IS AMBULATING, PASSING GAS, AND TOLERATING DIET WELL. WILL NOTIFY PT.
--- NOTE | 2017-01-22 15:26 | NUR ---
PT SLEEPING SOUNDLY. NO SIGNS OF DISTRESS. WILL CONTINUE TO MONITOR PT.
[2017-01-22 16:00] VITALS: BP 120/78
--- NOTE | 2017-01-22 17:50 | NUR ---
PT EATING SUBWAY SANDWICH THAT PARENT BROUGHT IN. PT TOLERATING WELL. MOM AND DAD AT BEDSIDE.
--- NOTE | 2017-01-22 18:12 | NUR ---
ADMINISTERED NORCO FOR PAIN 04/23, PT TOLERATED WELL. EMPTIED LEN DRAIN 15 ML OF SEROSANGUINOUS DRAINAGE. PT TOLERATED WELL.
--- NOTE | 2017-01-22 19:20 | NUR ---
ENDORSED PT TO STACKER AND SORTER OPERATOR NURSE AT BEDSIDE. PT IN STABLE CONDITION.
--- NOTE | 2017-01-22 19:28 | NUR ---
RECEIVED PT IN STABLE CONDITION FROM AM NURSE. ASLEEP BUR EASILY AROUSE WHEN NAME CALLED. MED SURG PT. NO C/O ANY PAIN AT THIS TIME. WITH IVF INFUSING WELL ON THE RT FA#[phone]. WITH ABDOMINAL DRESSING ,CLEAN AND DRY. J MORAN DRAIN PRESENT. BOTH LEGS WITH SCD MACHINE. CALL LIGHT PLACED WITHIN EASY REACH. WILL CONTINUE TO MONITOR.
--- NOTE | 2017-01-22 20:30 | NUR ---
AMBULATED TO THE HALLWAY. TOLERATED WELL. NO C/O ANY DISCOMFORT NOR PAIN NOTED.
--- NOTE | 2017-01-22 21:30 | NUR ---
SLEEPING AT THIS TIME. NO S/S OF ANY DISCOMFORT NOTED.
--- NOTE | 2017-01-22 23:50 | NUR ---
ENDORSED PT IN STABLE CONDITION TO MILO AARON FOR CONTINUITY OF CARE.
--- NOTE | 2017-01-22 23:52 | NUR ---
RECEIVED FROM ANOTHER RN FOR CONTINUITY OF CARE. SLEEPING. NO SOB. NO RESTLESSNESS. CALL LIGHT WITH IN REACH.
[2017-01-23] MEDS: LEVOFLOXACIN 500 MG/D5W PREMIX 100 ML IV SCH (00:02)
[2017-01-23] MEDS: HYDROcodone/APAP 5/325 MG 1 TAB TAB PO PRN ×2 (00:14→14:43)
[2017-01-23] MEDS: PIPER/TAZO 3.375GM/D5W PREMIX 50 ML IV SCH ×3 (00:44→11:51)
[2017-01-23 00:45] VITALS: BP 115/60
--- NOTE | 2017-01-23 00:47 | NUR ---
SLEEPING AT THIS TIME. ABLE TO VERBALIZE NEEDS WELL. CALL LIGHT WITH IN REACH.
[2017-01-23] MEDS: metroNIDAZOLE 500 MG/NS PREMIX 100 ML IV SCH ×2 (05:01→13:00)
--- NOTE | 2017-01-23 06:39 | NUR ---
SLEPT WELL THIS SHIFT. USES CALL LIGHT FOR HELP. LEN TAKEN OUT IS 5ML SEROUS SANGUINOUS. A/O X 4. ROM X 4. NO BLEEDING TO SURGICAL SITE. ABDOMINAL BINDER IN PLACE.
--- NOTE | 2017-01-23 07:15 | NUR ---
RECEIVED REPORT FROM THE FREE LANCE ARTIST NURSE, AGNIESZKA AT BEDSIDE FOR CONTINUITY OF CARE. PT IS SLEEPING. I WILL BE BY LATER WHEN SHE IS AWAKE TO ASSESS PT. PT IS IN STABLE CONDITION.
--- NOTE | 2017-01-23 07:45 | NUR ---
PT IS AWAKE AND ORIENTED. I RE-INTRODUCED MYSELF AND UPDATED THE BOARD. PT DENIES ANY PAIN AT THIS TIME. V/S WITHIN NORMAL RANGE. PT'S IV STILL INTACT ON R WRIST 22G, INFUSING NS AT 125ML/HR. PT'S ABDOMINAL BINDER STILL ON. WENT OVER TODAY'S PLAN: DR. JESSICA TO COME BY AND REMOVE KEVIN AND SUTURES. PT TO BE D/C TODAY. SHE IS AMBULATING TO AND FROM THE BATHROOM. PT IS PASSING GAS BUT NO BM OF YET. BREAKFAST IS HERE. WILL CONTINUE TO MONITOR PT.
[2017-01-23 08:00] VITALS: BP 100/57
[2017-01-23] MEDS: MORPHINE SULFATE 2 MG/ML SYR IVP PRN (08:30)
--- NOTE | 2017-01-23 08:36 | NUR ---
PT C/O OF PAIN AND NAUSEA. ADMINISTERED PAIN AND NAUSEA MEDS. PT TOLERATED WELL. WILL CONTINUE TO MONITOR PT.
--- NOTE | 2017-01-23 10:20 | NUR ---
P/T HERE FOR THERAPY. PT AMBULATING IN THE HALLS. PT TOLERATING WELL.
--- NOTE | 2017-01-23 10:43 | NUR ---
PT WANTED HER BREAKFAST HEATED UP. SHE DIDN'T EAT IT EARLIER D/T NAUSEA. SHE IS FEELING BETTER AFTER ZOFRAN. WILL CONTINUE TO MONITOR PT.
--- NOTE | 2017-01-23 12:00 | NUR ---
PT IV HAS INFILTRATED. REFUSED A NEW IV. WILL HOLD OTHER IV MEDS. NO SIGNS OF DISTRESS. WAITING ON DR. JESSICA TO ARRIVE TO REMOVE KEVIN. MOM BROUGHT OUTSIDE FOOD FOR PT. REFUSED HOSPITAL LUNCH TRAY. WILL CONTINUE TO MONITOR PT.
--- NOTE | 2017-01-23 13:28 | NUR ---
PT VISITING WITH FAMILY. STILL WAITING FOR DR. JESSICA TO ARRIVE. PT REQUESTED HER BEDDING BE CHANGED. CHANGED ALL THE LINENS. NO COMPLAINTS AT THIS TIME. WILL CONTINUE TO MONITOR PT.
--- NOTE | 2017-01-23 13:35 | NUR ---
01/23/17 RD FOLLOW-UP ASSESSMENT COMPLETED PLEASE REFER TO NUTRITION ASSESSMENT UNDER CARE ACTIVITY FOR ESTIMATED NUTRITIONAL NEEDS. 1. CONTINUE BLAND/SOFT DIET 2. RD TO FOLLOW-UP 2-3 DAYS; HIGH RISK WERNER ASENCIO RD
--- NOTE | 2017-01-23 13:50 | NUR ---
CM NOTE CONCURRENT REVIEW SENT TO [facility] FAX# [phone] PH# SARA [phone]
--- NOTE | 2017-01-23 14:45 | NUR ---
KARIS, CHARGE NURSE GOT ORDER FROM DR. JESSICA TO REMOVE THE LEN DRAIN. PT WILL BE D/C'D AND HE WOULD LIKE TO SEE HER IN HIS OFFICE ON THURSDAY. WILL START ON D/C PROCESS.
--- NOTE | 2017-01-23 15:20 | NUR ---
DISCHARGE INSTRUCTIONS GIVEN. ANSWERED ALL QUESTIONS. PT VERBALIZED UNDERSTANDING. PT SIGNED APPROPRIATE DOCUMENTS. TOOK PICTURES OF SURGICAL WOUNDS. LEFT WOUNDS TETE PER MD. WILL FOLLOW UP W/ DR. JESSICA THURSDAY. REMOVED IV, CANNULA INTACT. NO BLEEDING NOTED. REMOVED ALL ID BANDS. WILL GET DRESSED AND LET ME KNOW WHEN SHE IS READY TO LEAVE. WILL GATHER HER PERSONAL BELONGINGS. WILL HAVE WHEELCHAIR READY.
--- NOTE | 2017-01-23 15:35 | NUR ---
WHEELED PT OUT IN WHEEL CHAIR, ACCOMPANIED BY SPOUSE AND FAMILY. PERSONAL BELONGINGS ALL WITH FAMILY. PT IN STABLE CONDITION.
== END 2017-01-23 15:35 | disposition home or self-care (01) | DRG 260 ==
LOC: MED 15:49 → MTU 20:08
PROVIDERS: ADMIT Internal Medicine; ATTEND Internal Medicine
PROC: 0FB20ZZ Excision of Left Lobe Liver, Open Approach (ICD-10-PCS; 2017-01-20)
PROC: 0WJG4ZZ Inspection of Peritoneal Cavity, Percutaneous Endoscopic Approach (ICD-10-PCS; 2017-01-20)
PROC: 0FN44ZZ Release Gallbladder, Percutaneous Endoscopic Approach (ICD-10-PCS; 2017-01-20)
PROC: 0F944ZX Drainage of Gallbladder, Percutaneous Endoscopic Approach, Diagnostic (ICD-10-PCS; 2017-01-20)
PROC: 0FT40ZZ Resection of Gallbladder, Open Approach (ICD-10-PCS; principal; 2017-01-20 10:00)
PROC: 0FJ44ZZ Inspection of Gallbladder, Percutaneous Endoscopic Approach (ICD-10-PCS; 2017-01-20 10:00)
DX: K80.13 Calculus of gallbladder with acute and chronic cholecystitis with obstruction (principal); K82.1 Hydrops of gallbladder; E46 Unspecified protein-calorie malnutrition; Z68.43 Body mass index [BMI] 50.0-59.9, adult; E66.01 Morbid (severe) obesity due to excess calories; Z56.0 Unemployment, unspecified; Z53.31 Laparoscopic surgical procedure converted to open procedure
CPT/HCPCS: 36415; 80048; 80053; 81001; 82150; 82374; 83690; 85025; 87070; 87075; 87081; 87205; 96365; 96375; 97110; 97116; 97530; 99285; J0330; J0690; J1100; J1885; J1956; J2001; J2175; J2250; J2270; J2370; J2405; J2543; J2704; J3010; J3490; J7030; J7042; J7060

== ENCOUNTER 2017-01-23 21:20 | Emergency (ER) | payer OTHER ==
[~2017-01-23] VITALS: Ht 165.1 cm; Wt 157.4 kg
[~2017-01-23 21:20] MED LIST changes: +ACET-9525 PO; +DOCU-264 PO; +METR500T1 PO; +ONDA4ODT1 PO
[2017-01-23 21:41] VITALS: BP 101/68
[2017-01-23] MEDS ORDERED: GABAPENTIN 300 MG CAP PO ONE (23:10)
[2017-01-23] MEDS ORDERED: IBUPROFEN 600 MG TAB PO ONE (23:10)
--- NOTE | 2017-01-23 23:10 | NUR ---
31/F BIB FAMILY C/O BILATERAL LEG BURNING SENSATION x 2 DAYS. PAIN 10/10 BURNING SENSATION NON RADIATING. PT STATES SHE WAS INPATIENT FOR GB SURGERY AT [facility] SINCE THURSDAY. DENIES ANY SOB, NO S/S OF DISTRESS NOTED. ER MD EVALUATING PT.
[2017-01-23] MEDS ORDERED: GABAPENTIN 300 MG CAP ONE (23:35)
[2017-01-23 23:48] VITALS: BP 105/72
--- NOTE | 2017-01-23 23:48 | NUR ---
Patient discharged with v/s stable. Written and verbal after care instructions given and explained. Patient alert, oriented and verbalized understanding of instructions. Ambulatory with steady gait. All questions addressed prior to discharge. ID band removed. Patient advised to follow up TO THIS ER IN 2 DAYS. Rx of NEURONTIN, AND MOTRIN given. Patient educated on indication of medication including possible reaction and side effects. Opportunity to ask questions provided and answered.
== END 2017-01-23 23:48 | disposition home or self-care (01) ==
LOC: MED 21:20
DX: R20.9 Unspecified disturbances of skin sensation (principal); M79.652 Pain in left thigh; M79.651 Pain in right thigh; Z90.49 Acquired absence of other specified parts of digestive tract
CPT/HCPCS: 99283

== ENCOUNTER 2017-01-28 00:24 | Emergency (ER) | payer OTHER ==
[~2017-01-28] VITALS: Ht 165.1 cm; Wt 153.3 kg
[~2017-01-28 00:24] MED LIST changes: -ACET-9525 PO; +ACETAMINOPHEN-H1 TA3 PO; +ATIVAN1 MG PO; +COLACE100 MG PO; -DOCU-264 PO; +FLAGYL500 M1 PO; -IRON65TA11 PO; -METR500T1 PO; +MOTRIN; +MOTRIN800 MG PO; +NATURAL IRON65 MG PO; -ONDA4ODT1 PO; +PEPTO BISMUL; -PREN-385 PO; +PRENATAL VITAMI1 T10 PO; +PRENATAL1 TA1 PO; +ZOFRAN ODT4 MG PO; +ZOFRAN4 M3 PO; +tylenol
[2017-01-28 00:27] VITALS: BP 108/78
--- NOTE | 2017-01-28 01:23 | NUR ---
TO ER BED 5
--- NOTE | 2017-01-28 01:24 | NUR ---
PT BIB FAMILY C/O POST OP PAIN, WITH D/C STARTED AN HOUR AGO , POST CHOLECYSTECTOMY LAST THURSDAY. ER MD DR MUNIZ AT BEDSIDE, WOUND NOT BLEEDING. PAIN 4/10. Pupils equal and reactive to light bilaterally. No facial droop noted. No smile deficit noted. Speech normal for patient. Patient is alert and oriented to person, place, time and event. Bilateral hand gun profiler equal. Bilateral foot push equal. ALL ORDR EXECUTED. NO N/V/D, PERRLA, GAIT-WNL.
--- NOTE | 2017-01-28 01:46 | NUR ---
Patient appears to be resting comfortably in bed. Vital Signs within normal limits. Respirations even and unlabored.
--- NOTE | 2017-01-28 01:49 | NUR ---
Patient noted to have existing wounds upon arrival to ER. Wound covered with dressing. Physician informed.
[2017-01-28 01:52] VITALS: BP 108/78
== END 2017-01-28 01:48 | disposition home or self-care (01) ==
LOC: MED 00:24
DX: Z48.01 Encounter for change or removal of surgical wound dressing (principal)

== ENCOUNTER 2017-04-04 04:56 | Emergency (ER) | payer OTHER ==
[~2017-04-04] VITALS: Ht 165.1 cm; Wt 153.3 kg
[~2017-04-04 04:56] MED LIST changes: +ACET-9525 PO; -ACETAMINOPHEN-H1 TA3 PO; -ATIVAN1 MG PO; -COLACE100 MG PO; +DOCU-264 PO; -FLAGYL500 M1 PO; +IRON65TA11 PO; +METR500T1 PO; -MOTRIN; -MOTRIN800 MG PO; -NATURAL IRON65 MG PO; +ONDA4ODT1 PO; -PEPTO BISMUL; +PREN-385 PO; -PRENATAL VITAMI1 T10 PO; -PRENATAL1 TA1 PO; -ZOFRAN ODT4 MG PO; -ZOFRAN4 M3 PO; -tylenol
[2017-04-04 05:09] VITALS: BP 121/63
--- NOTE | 2017-04-04 05:14 | NUR ---
Vale carter in [facility] - 04/04/17 at 0516 by [facility] TO ER BED 8
--- NOTE | 2017-04-04 05:16 | NUR ---
AMBULATED TO ER BED 8
--- NOTE | 2017-04-04 05:26 | NUR ---
PATIENT PRESENTS TO ED WITH C/O VAG BLEED. STATES WENT TO URGENT CARE ON THU AND WAS TOLD HAD UTI. PT DENIES N/V/D; SKIN IS PINK/WARM/DRY; AAOX4 WITH EVEN AND STEADY GAIT; LUNGS CLEAR BL; HR EVEN AND REGULAR; PT DENIES ANY FEVER, CP, SOB, OR COUGH AT THIS TIME; PATIENT STATES PAIN OF 6/10 AT THIS TIME; VSS; PATIENT POSITIONED FOR COMFORT; HOB ELEVATED; BEDRAILS UP X2; BED DOWN. ER MD MADE AWARE OF PT STATUS.
--- NOTE | 2017-04-04 05:44 | NUR ---
FEMALE CHAPERONED FOR DR. PIERRE DURING PELVIC EXAM
[2017-04-04] MEDS ORDERED: PHENAZOPYRIDINE 100 MG TAB PO ONE (05:50)
[2017-04-04 05:55] LABS: BILIRUBIN,URINE NEGATIVE (NEGATIVE); BLOOD, URINE 3+ (NEGATIVE); COLOR,URINE RED (YELLOW); LEUKOCYTE ESTERASE ,URINE 2+ (NEGATIVE); NITRITE, URINE POSITIVE (NEGATIVE); PROTEIN,URINE 2+ (NEGATIVE); UGLUCOSE NEGATIVE (NEGATIVE)
[2017-04-04 06:19] LABS: APPEARANCE,URINE BLOODY (CLEAR)
[2017-04-04 06:21] LABS: RBC,URINE >20 (MANY) /HPF (0-5)
[2017-04-04 06:22] LABS: WBC,URINE 16-25 (MOD) /HPF (0-5)
[2017-04-04 06:23] LABS: BACTERIA,URINE 1+ /HPF (None Seen); SQUAMOUS EPITHELIAL CELL,UR 0-3 (FEW) /LPF (0-3 (FEW))
[2017-04-04 06:50] VITALS: BP 118/68
--- NOTE | 2017-04-04 06:50 | NUR ---
Patient discharged with v/s stable. Written and verbal after care instructions given and explained. Patient alert, oriented and verbalized understanding of instructions. Ambulatory with steady gait. All questions addressed prior to discharge. ID band removed. Patient advised to follow up with PMD. Rx of Pyridium and Cipro given. Patient educated on indication of medication including possible reaction and side effects. Opportunity to ask questions provided and answered.
== END 2017-04-04 06:50 | disposition home or self-care (01) ==
LOC: MED 04:56
DX: N39.0 Urinary tract infection, site not specified (principal); Z79.899 Other long term (current) drug therapy; Z90.49 Acquired absence of other specified parts of digestive tract
CPT/HCPCS: 81001; 81025; 87086; 87186; 99284

== ENCOUNTER 2017-12-06 09:08 | Emergency (ER) | payer OTHER ==
[~2017-12-06] VITALS: Ht 165.1 cm; Wt 137.9 kg
[~2017-12-06 09:08] MED LIST changes: -DOCU-264 PO; +DOCU-300 PO; +FERR-252 PO; -IRON65TA11 PO
--- NOTE | 2017-12-06 09:18 | NUR ---
attempted to call patient; pt in restroom in lobby; will follow up
[2017-12-06 09:31] VITALS: BP 111/68
--- NOTE | 2017-12-06 09:49 | NUR ---
PATIENT IS A 32 YO FEMALE BIB SELF FOR LEFT ANKLE PAIN AND ITCHING FROM INSECT BITE LAST NIGHT.
--- NOTE | 2017-12-06 09:54 | NUR ---
Dr. Archuleta evaluating patient.
[2017-12-06 10:00] VITALS: BP 111/68
--- NOTE | 2017-12-06 10:02 | NUR ---
Patient discharged with v/s stable. Written and verbal after care instructions given and explained. Patient verbalized understanding. Ambulatory with steady gait. All questions addressed prior to discharge. Advised to follow up with PMD.
== END 2017-12-06 10:02 | disposition home or self-care (01) ==
LOC: MED 09:08
DX: S90.562A Insect bite (nonvenomous), left ankle, initial encounter (principal); Z79.899 Other long term (current) drug therapy; W57.XXXA Bitten or stung by nonvenomous insect and other nonvenomous arthropods, initial encounter; Y93.89 Activity, other specified; Y92.830 Public park as the place of occurrence of the external cause; Y99.8 Other external cause status
CPT/HCPCS: 99281

== ENCOUNTER 2018-05-01 21:30 | Emergency (ER) | payer OTHER ==
[~2018-05-01] VITALS: Ht 165.1 cm; Wt 113.4 kg
[2018-05-01 21:37] VITALS: BP 100/64
--- NOTE | 2018-05-01 21:40 | NUR ---
EKG PERFORMED IN TRIAGE ROOM WITH BLINDS DRAWN AND TRIAGE NURSE PRESENT
--- NOTE | 2018-05-01 21:42 | NUR ---
TO LOBBY A/W BED, AMBULATORY, VSS, EKG DONE -NSR, ERMD NOTED
--- NOTE | 2018-05-01 22:23 | NUR ---
PT AMB TO ED BED 2
--- NOTE | 2018-05-01 23:05 | NUR ---
PATIENT PRESENTS TO ED WITH CHEST PAIN FOR 3 DAYS WHILE LYING ON BED. MED HX: ANXIETY PT DENIES N/V/D; SKIN IS PINK/WARM/DRY; AAOX4. LUNGS CLEAR BL; HR EVEN AND REGULAR; PATIENT STATES PAIN OF 8/10 AT THIS TIME; PATIENT POSITIONED FOR COMFORT; HOB ELEVATED; BEDRAILS UP X2; BED DOWN. ER MD MADE AWARE OF PT STATUS.
[2018-05-01] MEDS ORDERED: PANTOPRAZOLE 40 MG TABEC PO ONE (23:10)
[2018-05-01] MEDS ORDERED: ALUMINUM HYD/MAG/SIMETHICONE 30 ML, DICYCLOMINE HCL LIQUID 20 MG, LIDOCAINE VISCOUS 2% ... PO ONE ×3 (23:10)
[2018-05-01 23:44] LABS: BASOPHILS # (AUTO) 0.1 K/uL (0.00-0.22); BASOPHILS % (AUTO) 0.6 % (0.0-2.0); EOSINOPHILS # (AUTO) 0.1 K/uL (0-0.4); EOSINOPHILS % (AUTO) 1.3 % (0.0-4.0); HEMATOCRIT 36.3 % (36-48); HEMOGLOBIN 11.8 g/dL (12.0-16.0); LYMPHOCYTES # (AUTO) 2.5 K/uL (2.5-16.5); LYMPHOCYTES % (AUTO) 27.7 % (20.5-51.1); MEAN CORPUSCULAR HEMOGLOBIN 27 pg (27-31); MEAN CORPUSCULAR HGB CONC 32 g/dL (33-37); MEAN CORPUSCULAR VOLUME 83.8 fL (80-94); MONOCYTES # (AUTO) 0.7 K/uL (0.8-1.0); MONOCYTES % (AUTO) 7.8 % (1.7-9.3); NEUTROPHILS # (AUTO) 5.7 K/uL (1.8-7.7); NEUTROPHILS % (AUTO) 62.6 % (42.2-75.2); PLATELET COUNT (AUTO) 228 K/uL (140-450); RED BLOOD CELL COUNT(AUTO) 4.34 MIL/uL (4.20-5.40); RED CELL DISTRIBUTION WIDTH 15.4 % (11.6-13.7); WHITE BLOOD COUNT (AUTO) 9.1 K/uL (4.8-10.8)
[2018-05-02 00:01] LABS: CARBON DIOXIDE 28.9 mmol/L (21-32); CREATININE 0.6 mg/dL (0.6-1.3); POTASSIUM 3.9 mmol/L (3.5-5.1)
--- NOTE | 2018-05-02 00:02 | NUR ---
TO SENT TO XRAY VIA W/C WITH TECH VIA W/C
[2018-05-02 00:06] LABS: ALBUMIN 3.4 g/dL (3.4-5.0); TOTAL BILIRUBIN 0.3 mg/dL (0.0-1.0)
[2018-05-02 02:25] VITALS: BP 105/62
--- NOTE | 2018-05-02 02:25 | NUR ---
Patient discharged with v/s stable. Written and verbal after care instructions given and explained. Patient alert, oriented and verbalized understanding of instructions. Ambulatory with steady gait. All questions addressed prior to discharge. ID band removed. Patient advised to follow up with PMD. Rx of REGLAN 5MG, OMEPRAZOLE 40MG AND NORCO 5MG-325MG given. Patient educated on indication of medication including possible reaction and side effects. Opportunity to ask questions provided and answered.
== END 2018-05-02 02:25 | disposition home or self-care (01) ==
LOC: MED 21:30
DX: K29.70 Gastritis, unspecified, without bleeding (principal); Z79.899 Other long term (current) drug therapy; Z98.84 Bariatric surgery status
CPT/HCPCS: 36415; 74021; 80053; 81002; 81025; 83690; 85025; 93005; 99285

== ENCOUNTER 2018-10-03 15:09 | Emergency (ER) | payer OTHER ==
[~2018-10-03] VITALS: Ht 160 cm; Wt 97.5 kg
[~2018-10-03 15:09] MED LIST changes: +ONDA-24 PO; -ONDA4ODT1 PO
[2018-10-03 15:32] VITALS: BP 114/71
[2018-10-03 16:22] LABS: BASOPHILS % (AUTO) 0.3 % (0.0-2.0); EOSINOPHILS # (AUTO) 0.1 K/uL (0-0.4); EOSINOPHILS % (AUTO) 0.9 % (0.0-4.0); HEMATOCRIT 38.4 % (36-48); HEMOGLOBIN 12.4 g/dL (12.0-16.0); LYMPHOCYTES # (AUTO) 1.7 K/uL (2.5-16.5); LYMPHOCYTES % (AUTO) 21.7 % (20.5-51.1); MEAN CORPUSCULAR HEMOGLOBIN 28 pg (27-31); MEAN CORPUSCULAR HGB CONC 32 g/dL (33-37); MEAN CORPUSCULAR VOLUME 85.4 fL (80-94); MONOCYTES # (AUTO) 0.5 K/uL (0.8-1.0); MONOCYTES % (AUTO) 6.8 % (1.7-9.3); NEUTROPHILS # (AUTO) 5.4 K/uL (1.8-7.7); NEUTROPHILS % (AUTO) 70.3 % (42.2-75.2); PLATELET COUNT (AUTO) 210 K/uL (140-450); RED CELL DISTRIBUTION WIDTH 14.9 % (11.6-13.7); WHITE BLOOD COUNT (AUTO) 7.6 K/uL (4.8-10.8)
[2018-10-03 16:27] LABS: ANION GAP 8.4 (8-16); CARBON DIOXIDE 29.6 mmol/L (21-32); CREATININE 0.8 mg/dL (0.6-1.3)
[2018-10-03 16:34] LABS: ALBUMIN 3.6 g/dL (3.4-5.0); BILIRUBIN,DIRECT 0.1 mg/dL (0.0-0.3); TOTAL BILIRUBIN 0.3 mg/dL (0.0-1.0)
--- NOTE | 2018-10-03 18:03 | NUR ---
PT AMBULATED TO ER BED 03
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
[2018-10-03 18:36] LABS: APPEARANCE,URINE HAZY (CLEAR); BILIRUBIN,URINE NEGATIVE (NEGATIVE); BLOOD, URINE 3+ (NEGATIVE); COLOR,URINE YELLOW (YELLOW); LEUKOCYTE ESTERASE ,URINE NEGATIVE (NEGATIVE); NITRITE, URINE NEGATIVE (NEGATIVE); UGLUCOSE NEGATIVE (NEGATIVE)
[2018-10-03 18:47] LABS: RBC,URINE 80-100 /HPF (0-5); WBC,URINE 0-5 (RARE) /HPF (0-5)
--- NOTE | 2018-10-03 19:07 | NUR ---
RECIEVED REPORT FROM CHER PEDARZA.
--- NOTE | 2018-10-03 19:23 | NUR ---
DR GARZA AT BEDSIDE AT THIS TIME.
[2018-10-03] MEDS ORDERED: LIDOCAINE VISCOUS 2% 20 ML UDC PO ONE (19:35)
[2018-10-03] MEDS ORDERED: ALUMINUM HYD/MAG/SIMETHICONE 30 ML UDC PO ONE (19:35)
[2018-10-03] MEDS ORDERED: PANTOPRAZOLE 40 MG TABEC PO ONE (19:35)
[2018-10-03] MEDS ORDERED: DICYCLOMINE HCL LIQUID 10 MG/5 ML UDC PO ONE (19:35)
[2018-10-03 20:34] VITALS: BP 108/64
--- NOTE | 2018-10-03 20:34 | NUR ---
Patient discharged with v/s stable. Written and verbal after care instructions given and explained. Patient alert, oriented and verbalized understanding of instructions. Ambulatory with steady gait. All questions addressed prior to discharge. ID band removed. Patient advised to follow up with PMD. Rx of maalox, and protonix given. Patient educated on indication of medication including possible reaction and side effects. Opportunity to ask questions provided and answered.
== END 2018-10-03 20:34 | disposition home or self-care (01) ==
LOC: MED 15:09
DX: K29.70 Gastritis, unspecified, without bleeding (principal); Z79.891 Long term (current) use of opiate analgesic; Z79.899 Other long term (current) drug therapy
CPT/HCPCS: 36415; 80048; 80076; 81001; 82150; 83690; 85025; 99284

== ENCOUNTER 2018-12-23 05:00 | Emergency (ER) | payer OTHER ==
[~2018-12-23] VITALS: Ht 165.1 cm; Wt 90.7 kg
[2018-12-23 05:04] VITALS: BP 109/68
--- NOTE | 2018-12-23 05:05 | NUR ---
to bed # 07 ambulatory
--- NOTE | 2018-12-23 05:14 | NUR ---
PT PRESENTS TO THE ED WITH C/O ABD PAIN WITH NAUSEA AND VOMITING. PATIENT RATES PAIN 10/10 AND CONSTANT. PT REPORTS AT LEAST 5 EPISODES OF VOMITING SINCE LAST NIGHT. BOWEL SOUNDS PRESENT. PT REPORTS HAVING ONE EPISODE OF DIARRHEA TODAY. DENIES ANY MEDICAL HX. NO ACTIVE VOMITING AT THIS TIME. BED LOWERED WITH SIDE RAILS UP. WILL CONTINUE TO MONITOR
[2018-12-23] MEDS ORDERED: ONDANSETRON 4 MG ODT PO ONE (06:00)
[2018-12-23 06:04] LABS: ALBUMIN 3.3 g/dL (3.4-5.0); ANION GAP 11.9 (8-16); CARBON DIOXIDE 27.9 mmol/L (21-32); CREATININE 0.8 mg/dL (0.6-1.3); POTASSIUM 3.8 mmol/L (3.5-5.1); TOTAL BILIRUBIN 0.4 mg/dL (0.0-1.0)
[2018-12-23 06:11] LABS: BASOPHILS % (AUTO) 0.2 % (0.0-2.0); EOSINOPHILS # (AUTO) 0.1 K/uL (0-0.4); EOSINOPHILS % (AUTO) 0.5 % (0.0-4.0); HEMATOCRIT 39.3 % (36-48); HEMOGLOBIN 12.9 g/dL (12.0-16.0); LYMPHOCYTES # (AUTO) 0.6 K/uL (2.5-16.5); LYMPHOCYTES % (AUTO) 5.2 % (20.5-51.1); MEAN CORPUSCULAR HEMOGLOBIN 29 pg (27-31); MEAN CORPUSCULAR HGB CONC 33 g/dL (33-37); MEAN CORPUSCULAR VOLUME 87.1 fL (80-94); MONOCYTES # (AUTO) 0.8 K/uL (0.8-1.0); MONOCYTES % (AUTO) 6.3 % (1.7-9.3); NEUTROPHILS # (AUTO) 10.7 K/uL (1.8-7.7); NEUTROPHILS % (AUTO) 87.8 % (42.2-75.2); PLATELET COUNT (AUTO) 201 K/uL (140-450); RED BLOOD CELL COUNT(AUTO) 4.51 MIL/uL (4.20-5.40); WHITE BLOOD COUNT (AUTO) 12.2 K/uL (4.8-10.8)
--- NOTE | 2018-12-23 06:25 | NUR ---
PT UNABLE TO PROVIDE URINE AT THIS TIME. PATIENT REPORTS FEELING BETTER. DENIES NAUSEA AND PAIN AT THIS TIME. DR BULLOCK NOTIFIED
[2018-12-23 06:34] VITALS: BP 109/68
--- NOTE | 2018-12-23 06:34 | NUR ---
Patient discharged with v/s stable. Written and verbal after care instructions given and explained. Patient alert, oriented and verbalized understanding of instructions. Ambulatory with steady gait. All questions addressed prior to discharge. ID band removed. Patient advised to follow up with PMD. Rx of ZANTAC given. Patient educated on indication of medication including possible reaction and side effects. Opportunity to ask questions provided and answered.
== END 2018-12-23 06:35 | disposition home or self-care (01) ==
LOC: MED 05:00
DX: K29.70 Gastritis, unspecified, without bleeding (principal); Z79.891 Long term (current) use of opiate analgesic; Z79.899 Other long term (current) drug therapy
CPT/HCPCS: 36415; 80053; 83690; 85025; 99283; Q0162

== ENCOUNTER 2019-03-12 17:58 | Emergency (ER) | payer OTHER ==
[~2019-03-12] VITALS: Ht 165.1 cm; Wt 90.7 kg
--- NOTE | 2019-03-12 18:02 | NUR ---
PT TO ER BED 6 VIA [facility].
[2019-03-12 18:05] VITALS: BP 132/88
[2019-03-12] MEDS ORDERED: ACETAMINOPHEN 325 MG TAB PO ONE (18:10)
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
--- NOTE | 2019-03-12 18:20 | NUR ---
Pupils equal and reactive to light bilaterally. Patient is alert and oriented to person, place, time and event. 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 Bilateral foot push equal.
--- NOTE | 2019-03-12 18:24 | NUR ---
LAB AT BEDSIDE.
[2019-03-12 18:35] LABS: BASOPHILS % (AUTO) 0.4 % (0.0-2.0); EOSINOPHILS % (AUTO) 0.2 % (0.0-4.0); HEMATOCRIT 37.1 % (36-48); HEMOGLOBIN 12.4 g/dL (12.0-16.0); LYMPHOCYTES # (AUTO) 1.3 K/uL (2.5-16.5); LYMPHOCYTES % (AUTO) 15.4 % (20.5-51.1); MEAN CORPUSCULAR HEMOGLOBIN 29 pg (27-31); MEAN CORPUSCULAR HGB CONC 33 g/dL (33-37); MEAN CORPUSCULAR VOLUME 87.2 fL (80-94); MONOCYTES # (AUTO) 0.5 K/uL (0.8-1.0); MONOCYTES % (AUTO) 5.8 % (1.7-9.3); NEUTROPHILS # (AUTO) 6.4 K/uL (1.8-7.7); NEUTROPHILS % (AUTO) 78.2 % (42.2-75.2); PLATELET COUNT (AUTO) 213 K/uL (140-450); RED BLOOD CELL COUNT(AUTO) 4.25 MIL/uL (4.20-5.40); WHITE BLOOD COUNT (AUTO) 8.2 K/uL (4.8-10.8)
[2019-03-12 18:36] LABS: APPEARANCE,URINE CLEAR (CLEAR); BILIRUBIN,URINE NEGATIVE (NEGATIVE); BLOOD, URINE NEGATIVE (NEGATIVE); COLOR,URINE YELLOW (YELLOW); LEUKOCYTE ESTERASE ,URINE TRACE (NEGATIVE); NITRITE, URINE NEGATIVE (NEGATIVE); UGLUCOSE NEGATIVE (NEGATIVE)
[2019-03-12 18:47] LABS: ANION GAP 13.3 (8-16); CARBON DIOXIDE 26.8 mmol/L (21-32); CREATININE 0.7 mg/dL (0.6-1.3); POTASSIUM 4.1 mmol/L (3.5-5.1)
[2019-03-12 18:53] LABS: ALBUMIN 3.3 g/dL (3.4-5.0); TOTAL BILIRUBIN 0.2 mg/dL (0.0-1.0)
[2019-03-12 18:55] LABS: RBC,URINE 0 /HPF (0-5); WBC,URINE 0-5 /HPF (0-5)
--- NOTE | 2019-03-12 19:19 | NUR ---
report given to MILO ling. transfer of care at this time. pt in stable condition.
--- NOTE | 2019-03-12 19:20 | NUR ---
RECEIVED REPORT FROM MILO MAZA. TRANSFER OF CARE AT THIS TIME.
[2019-03-12 19:54] VITALS: BP 103/55
--- NOTE | 2019-03-12 19:54 | NUR ---
Dr. Clark examining patient.
--- NOTE | 2019-03-12 19:54 | NUR ---
Patient discharged with v/s stable. Written and verbal after care instructions given and explained. Patient verbalized understanding. Ambulatory with steady gait. All questions addressed prior to discharge. Advised to follow up with PMD. Addendum: 03/13/19 at 0337 by [facility] DISCHARGED BY DR. MUNIZ.
== END 2019-03-12 19:54 | disposition home or self-care (01) ==
LOC: MED 17:58
DX: O9A.211 Injury, poisoning and certain other consequences of external causes complicating pregnancy, first trimester (principal); S00.12XA Contusion of left eyelid and periocular area, initial encounter; Z79.891 Long term (current) use of opiate analgesic; Z90.49 Acquired absence of other specified parts of digestive tract; Z98.890 Other specified postprocedural states; Z3A.11 11 weeks gestation of pregnancy; W03.XXXA Other fall on same level due to collision with another person, initial encounter; Y93.89 Activity, other specified; Y92.89 Other specified places as the place of occurrence of the external cause; Y99.8 Other external cause status
CPT/HCPCS: 36415; 76801; 80053; 81001; 81025; 83690; 84702; 85025; 86900; 86901; 99284; Q0092

== ENCOUNTER 2020-05-05 07:50 | Emergency (ER) | payer OTHER, SELFPAY ==
[~2020-05-05] VITALS: Ht 165.1 cm; Wt 93.9 kg
[2020-05-05 08:16] VITALS: BP 99/60
--- NOTE | 2020-05-05 08:28 | NUR ---
DR. BULLOCK EVALUATING PT AT THIS TIME
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
--- NOTE | 2020-05-05 08:40 | NUR ---
COVID SWAB OBTAINED AND DROPPED OFF AT LAB
[2020-05-05 09:20] VITALS: BP 99/60
--- NOTE | 2020-05-06 10:41 | NUR ---
Positive COVID-19 test results were received from lab. A copy of the test results were given to Infection Control.
== END 2020-05-05 08:52 | disposition home or self-care (01) ==
LOC: MED 07:50
DX: R05 Cough (principal); Z20.828 Contact with and (suspected) exposure to other viral communicable diseases; M79.10 Myalgia, unspecified site; R51 Headache; Z79.899 Other long term (current) drug therapy
CPT/HCPCS: 99283; U0003